=== PATIENT | male | born 1945 | race Caucasian/White ===

== ENCOUNTER 2023-05-30 23:57 | Inpatient (IN) | payer OTHER ==
[~2023-05-30] VITALS: Ht 182.9 cm; Wt 83.5 kg
[2023-05-31] VITALS (8 sets, daily range): BP systolic 105–169; BP diastolic 63–77; PULSE 63–103; RESP 16–20; TEMP 97.6–98.4; O2SAT 96–100
[2023-05-31] MEDS ORDERED: MORPHINE SULFATE INJ 2 MG/ml SYRG IV PRN (00:15)
[2023-05-31] MEDS ORDERED: ATROPINE SULF 1 MG/10ml SYR IV PRN (00:15)
[2023-05-31] MEDS ORDERED: ACETAMINOPHEN 325 MG TAB PO PRN (00:15)
[2023-05-31] MEDS ORDERED: ONDANSETRON HCL 4 MG/2 ML VIAL IV PRN (00:15)
[2023-05-31] MEDS ORDERED: DOCUSATE SOD 100 MG CAP PO PRN (00:15)
[2023-05-31] MEDS ORDERED: NITROGLYCERIN 0.4 MG SL TAB SL PRN (00:15)
[2023-05-31] MEDS ORDERED: DEXTROSE (50%) 50ML SYRG IV PRN (01:00)
[2023-05-31] MEDS: SODIUM CHLORIDE 0.9% 1,000 ML IV SCH (01:47)
[2023-05-31] MEDS: ACCU-CHEK COMFORT CURVE STRIP VI SCH (06:00)
[2023-05-31 06:41] LABS: Basophils # (auto) 0 10 ^3/uL (0-0.2); Basophils % (auto) 0.2 % (0.0-2.0); Eosinophils # (auto) 0 10 ^3/uL (0-0.8); Eosinophils % (auto) 0.5 % (0.0-7.0); Hematocrit 38.5 % (41.0-53.0); Lymphocytes # (auto) 2.3 10 ^3/uL (0.4-5.4); Lymphocytes % (auto) 32.9 % (10.0-50.0); Mean Corpuscular Hemoglobin 29.4 pg (28.0-32.0); Mean Corpuscular Hgb Conc. 33.8 g/dL (32.0-36.0); Mean Corpuscular Volume 86.9 fL (80.0-100.0); Monocytes # (auto) 0.5 10 ^3/uL (0-1.3); Monocytes % (auto) 7.7 % (0.0-12.0); Neutrophils # (auto) 4.1 10 ^3/uL (1.6-8.6); Neutrophils % (auto) 58.7 % (37.0-80.0); Nucleated Red Blood Cells % 0.2 %; Red Blood Cells 4.43 10^6/uL (4.5-5.90); Red Cell Distribution Width 15.1 % (11.8-14.3); White Blood Cell 7.1 10^3/uL (4.4-10.8)
[2023-05-31 06:47] LABS: Chloride 104 mmol/L (98-107); Potassium 3.9 mmol/L (3.5-5.1); Sodium 135 mmol/L (136-145)
[2023-05-31 06:48] LABS: Anion Gap 8 (5-15); Carbon Dioxide 23 mmol/L (20-30)
[2023-05-31 06:49] LABS: Calcium 9.3 mg/dL (8.5-10.1)
[2023-05-31 06:54] LABS: BUN/Creatinine Ratio 10.7 (10.0-20.0); Blood Urea Nitrogen 11 mg/dL (9-23); Glucose 69 mg/dL (74-106)
[2023-05-31] MEDS: InsuLIN REG 1unit/0.01ml Soln (100units/ml) SC SCH (07:00)
[2023-05-31] MEDS: NICOTINE 14 MG/24HR TOPICAL PATCH TD SCH (14:17)
[2023-05-31] MEDS: SOD CHL 0.45% 1,000 ML IV SCH (14:24)
[2023-05-31 15:47] LABS: INR 1.21 (0.9-1.15); Partial Thromboplastin Time 33.1 SEC (24.5-34.5); Prothrombin Time 12.5 sec (9.3-11.8)
[2023-05-31 20:08] LABS: Urine Bacteria NONE SEEN /hpf (None Seen); Urine Blood Negative /uL (Negative); Urine Clarity Clear (Clear); Urine Color Yellow (Yellow); Urine Protein, UAD Negative (Negative); Urine Specific Gravity 1.012 (1.001-1.035); Urine WBC 1 /hpf (0 - 3)
[2023-05-31] MEDS ORDERED: LEVO50TA7 PO (20:08)
[2023-05-31] MEDS ORDERED: METO25TA5 PO (20:08)
[2023-05-31] MEDS ORDERED: RIVA10TA PO (20:08)
[2023-05-31] MEDS ORDERED: GLIP2.5T9 PO (20:08)
[2023-05-31] MEDS ORDERED: METF-370 PO (20:08)
[2023-05-31] MEDS: PANTOPRAZOLE 40 MG/10 ML VIAL INJ IV SCH (21:52)
[2023-06-01] VITALS (10 sets, daily range): BP systolic 107–128; BP diastolic 54–71; PULSE 69–93; RESP 12–18; TEMP 98.1–98.4; O2SAT 92–99
[2023-06-01 05:25] LABS: Basophils # (auto) 0 10 ^3/uL (0-0.2); Basophils % (auto) 0.4 % (0.0-2.0); Eosinophils # (auto) 0 10 ^3/uL (0-0.8); Eosinophils % (auto) 0.5 % (0.0-7.0); Hemoglobin 12.7 g/dL (13.5-17.5); Lymphocytes # (auto) 2.1 10 ^3/uL (0.4-5.4); Lymphocytes % (auto) 31.3 % (10.0-50.0); Mean Corpuscular Hemoglobin 29.2 pg (28.0-32.0); Mean Corpuscular Hgb Conc. 33.5 g/dL (32.0-36.0); Mean Corpuscular Volume 87.1 fL (80.0-100.0); Monocytes # (auto) 0.5 10 ^3/uL (0-1.3); Neutrophils % (auto) 59.8 % (37.0-80.0); Nucleated Red Blood Cells % 0.1 %; Red Blood Cells 4.36 10^6/uL (4.5-5.90); Red Cell Distribution Width 15.6 % (11.8-14.3); White Blood Cell 6.8 10^3/uL (4.4-10.8)
[2023-06-01 05:34] LABS: Anion Gap 8 (5-15); Carbon Dioxide 24 mmol/L (20-30); Chloride 104 mmol/L (98-107); Sodium 136 mmol/L (136-145)
[2023-06-01 05:40] LABS: Glucose 88 mg/dL (74-106)
[2023-06-01 05:41] LABS: BUN/Creatinine Ratio 8.3 (10.0-20.0); Blood Urea Nitrogen 10 mg/dL (9-23)
[2023-06-01 05:42] LABS: INR 1.15 (0.9-1.15)
[2023-06-01] MEDS: VANCOMYCIN 1GM/200ML 200 ML IV ONE (12:52)
[2023-06-01] MEDS ORDERED: fentaNYL CITRATE 100 MCG/2 ML VL ONE (14:45)
[2023-06-01] MEDS ORDERED: VANCOMYCIN HCL 1000 MG VL ONE (14:45)
[2023-06-01] MEDS ORDERED: MIDAZOLAM HCL 2MG/2ML 2ml VIAL (1mg/ml) ONE (14:46)
[2023-06-01] MEDS ORDERED: LIDOCAINE 2%HCL (LOCAL ANESTH.) INJ 20ML MDV ONE (15:07)
[2023-06-01] MEDS ORDERED: SIMV20TA20 PO (15:24)
[2023-06-01] MEDS ORDERED: LISI20TA56 PO (15:24)
[2023-06-01] MEDS: HYDROcodone-ACET 5/325MG TAB PO PRN (18:00)
[2023-06-02 05:00] VITALS: BP 111/70; PULSE 76; RESP 18; TEMP 98.2; O2SAT 96
[2023-06-02 06:25] LABS: Basophils # (auto) 0 10 ^3/uL (0-0.2); Basophils % (auto) 0.3 % (0.0-2.0); Eosinophils # (auto) 0 10 ^3/uL (0-0.8); Eosinophils % (auto) 0.2 % (0.0-7.0); Hematocrit 40.5 % (41.0-53.0); Hemoglobin 13.4 g/dL (13.5-17.5); Lymphocytes # (auto) 1.8 10 ^3/uL (0.4-5.4); Lymphocytes % (auto) 20.2 % (10.0-50.0); Mean Corpuscular Hemoglobin 29.1 pg (28.0-32.0); Mean Corpuscular Volume 88.2 fL (80.0-100.0); Monocytes # (auto) 0.7 10 ^3/uL (0-1.3); Neutrophils # (auto) 6.4 10 ^3/uL (1.6-8.6); Neutrophils % (auto) 71.3 % (37.0-80.0); Nucleated Red Blood Cells % 0.1 %; Red Cell Distribution Width 15.1 % (11.8-14.3)
[2023-06-02 06:34] LABS: Chloride 104 mmol/L (98-107); Sodium 135 mmol/L (136-145)
[2023-06-02 06:35] LABS: Anion Gap 8 (5-15); Calcium 8.6 mg/dL (8.7-10.4); Carbon Dioxide 23 mmol/L (20-30)
[2023-06-02 06:40] LABS: BUN/Creatinine Ratio 9.5 (10.0-20.0); Blood Urea Nitrogen 9 mg/dL (9-23); Glucose 87 mg/dL (74-106)
[2023-06-02 08:00] VITALS: PULSE 70
[2023-06-02 08:30] VITALS: BP 108/67; PULSE 76; RESP 18; TEMP 97.7; O2SAT 95
[2023-06-02 13:00] VITALS: BP 110/69; PULSE 75; RESP 18; TEMP 97.7; O2SAT 98
[2023-06-02] MEDS ORDERED: DOXY-448 PO (15:18)
[2023-06-02 15:36] VITALS: TEMP 36.5
[2023-06-02 17:28] VITALS: BP 110/64; PULSE 79; RESP 18; TEMP 98.3; O2SAT 99
== END 2023-06-02 17:30 | disposition home or self-care (01) | DRG 244 ==
LOC: TELE-EAST 23:57 → UNDOADMIN 23:57 → TELE-EAST 05-31 → UNDOADMIN 05-31 01:44 → TELE-EAST 05-31 01:44
PROVIDERS: ADMIT Nurse Practitioner Family; ATTEND Hospitalist
PROC: 0JH606Z Insertion of Pacemaker, Dual Chamber into Chest Subcutaneous Tissue and Fascia, Open Approach (ICD-10-PCS; principal; 2023-06-01)
PROC: 02H63JZ Insertion of Pacemaker Lead into Right Atrium, Percutaneous Approach (ICD-10-PCS; 2023-06-01)
PROC: 02HK3JZ Insertion of Pacemaker Lead into Right Ventricle, Percutaneous Approach (ICD-10-PCS; 2023-06-01)
DX: I49.5 Sick sinus syndrome (principal); N18.9 Chronic kidney disease, unspecified; I48.91 Unspecified atrial fibrillation; I12.9 Hypertensive chronic kidney disease with stage 1 through stage 4 chronic kidney disease, or unspecified chronic kidney disease; E11.22 Type 2 diabetes mellitus with diabetic chronic kidney disease; I44.30 Unspecified atrioventricular block; Z95.5 Presence of coronary angioplasty implant and graft
CPT/HCPCS: 33208; 36415; 71045; 80048; 81001; 82962; 84443; 85025; 85610; 85730; 93005; 93306; 97163; 99152; C9113; G0378; J1815; J2250